=== PATIENT | female | born 1995 | race Caucasian/White ===

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

== ENCOUNTER → 2023-08-08 | Outpatient (CLI) | payer BC, OTHER ==
[2023-08-08 18:29] LABS: FREE T4 1.29 NG/DL (0.89-1.76); LUTEINIZING HORMONE 8.6 mIU/ML; THYROID STIMULATING HORMONE 1.41 uIU/ML (0.55-4.78)
== END ==
LOC: M WUC 13:25
PROVIDERS: ATTEND Nurse Practitioner Family
DX: L70.0 Acne vulgaris (principal)